=== PATIENT | female | born 1965 | race African-American/Black ===

== ENCOUNTER 2018-07-03 09:47 | Emergency (ER) | payer BC ==
[~2018-07-03] VITALS: Ht 162.6 cm; Wt 65.0 kg
[2018-07-03] MEDS ORDERED: IBUPROFEN 800MG TABLET PO ONE (11:00)
[2018-07-03 13:19] VITALS: BP 121/71
== END 2018-07-03 14:20 | disposition home or self-care (01) ==
LOC: ER 14:14
DX: M54.2 Cervicalgia (principal); M54.5 Low back pain; V44.5XXA Car driver injured in collision with heavy transport vehicle or bus in traffic accident, initial encounter; Y93.89 Activity, other specified; Y92.89 Other specified places as the place of occurrence of the external cause
CPT/HCPCS: 81025; 99284